=== PATIENT | male | born 1975 | race Caucasian/White ===

== ENCOUNTER 2017-04-02 23:58 | Emergency (ER) | payer OTHER ==
[2017-04-03 00:18] LABS: BASO % 0.9 % (0-2.0); EOS % 1.1 % (0-4.5); HEMATOCRIT 43.1 % (35.4-49); HEMOGLOBIN 14.2 GM/dL (11.7-16.9); LYMPH % 27.5 % (8-40); MCH 28.7 pg (25.7-33.7); MEAN PLT VOLUME 8.1 fl (7.5-11.1); MONO % 9.6 % (3.8-10.2); NEUT % 60.9 % (42.8-82.8); PLATELET COUNT 216 K/MM3 (134-434); RBC 4.96 M/mm3 (4.00-5.60)
[2017-04-03 00:58] LABS: ALK PHOS 78 U/L (45-117); ANION GAP 8 (8-16); BILIRUBIN,TOTAL 0.2 mg/dL (0.2-1.0); BLOOD UREA NITROGEN 18 mg/dL (7-18); CALCIUM 8.8 mg/dL (8.5-10.1); CHLORIDE 106 mmol/L (98-107); CO2 27 mmol/L (21-32); CREATININE 0.9 mg/dL (0.7-1.3); GLUCOSE,RANDOM 78 mg/dL (74-106); POTASSIUM 4.3 mmol/L (3.5-5.1); SGOT/AST 21 U/L (15-37); SGPT/ALT 42 U/L (12-78); SODIUM 141 mmol/L (136-145); TOT PROT 7.2 g/dl (6.4-8.2)
--- NOTE | 2017-04-03 01:02 | PDOC ---
History of Present Illness - General Stated Complaint: LLQ PAIN Time Seen by Provider: 04/03/17 00:08 History Source: Patient Exam Limitations: No Limitations - History of Present Illness Travel History: No Initial Comments: 04/03/17 02:10 41-year-old male with no medical history presents to the emergency department complaining of left lower quadrant abdominal pain. Pain is described as 5/10 dull nonradiating intermittent discomfort without fever, chills, nausea/vomiting , chest pain, shortness of breath, flank pains, urinary symptoms: Frequency/ urgency/hesitancy, hematuria 8 hours. Pain is exacerbated on touch and alleviated minimally at rest. No history of similar symptoms. Timing/Duration: reports: intermittent Quality: reports: moderate Abdominal Pain Onset Location: reports: LLQ Past History - Past Medical History Allergies/Adverse Reactions: Allergies Allergy/AdvReac Type Severity Reaction Status Date / Time No Known Allergies Allergy Verified 04/03/17 01:06 Home Medications: Ambulatory Orders Metronidazole 500 mg PO BID #20 tablet 04/03/17 Sulfamethoxazole/Trimethoprim [Bactrim Ds -] 1 tab PO BID #14 tablet 04/03/17 Review of Systems - Review of Systems Able to Perform ROS?: Yes Comments:: 04/03/17 02:11 CONSTITUTIONAL: Absent: fever, chills, diaphoresis, generalized weakness, malaise, loss of appetite HEENT: Absent: rhinorrhea, nasal congestion, throat pain, throat swelling, difficulty swallowing, mouth swelling, ear pain, eye pain, visual Changes CARDIOVASCULAR: Absent: chest pain, loss of consciousness, palpitations, irregular heart rate, peripheral edema RESPIRATORY: Absent: cough, shortness of breath, dyspnea with exertion, orthopnea, wheezing, stridor, hemoptysis GASTROINTESTINAL: +LLQ pain Absent: abdominal distension, nausea, vomiting, diarrhea, constipation, melena, hematochezia GENITOURINARY: Absent: dysuria, frequency, urgency, hesitancy, hematuria, flank pain, genital pain MUSCULOSKELETAL: Absent: myalgia, arthralgia, joint swelling SKIN: Absent: rash, itching, pallor HEMATOLOGIC/IMMUNOLOGIC: Absent: easy bleeding, easy bruising, lymphadenopathy, frequent infections ENDOCRINE: Absent: unexplained weight gain, unexplained weight loss, heat intolerance, cold intolerance Is the patient limited [place]ian proficient: No *Physical Exam - Physical Exam Comments: 04/03/17 02:11 GENERAL: Well developed, well nourished. Awake and alert. No acute distress. HEENT: Normocephalic, atraumatic. PERRLA, EOMI. No conjunctival pallor. Sclera are non- icteric. Moist mucous membranes. Oropharynx is clear. NECK: Supple. Full ROM. No JVD. Carotid pulses 2+ and symmetric, without bruits. No thyromegaly. No lymphadenopathy. CARDIOVASCULAR: Regular rate and rhythm. No murmurs, rubs, or gallops. Distal pulses are 2+ and symmetric. PULMONARY: No evidence of respiratory distress. Lungs clear to auscultation bilaterally. No wheezing, rales or rhonchi. ABDOMINAL: +LLQ abd pain Soft.Non-distended. No rebound or guarding. No organomegaly. Normoactive bowel sounds. MUSCULOSKELETAL Normal range of motion at all joints. No bony deformities or tenderness. No CVA tenderness. EXTREMITIES: No cyanosis. No clubbing. No edema. No calf tenderness. SKIN: Warm and dry. Normal capillary refill. No rashes. No jaundice. ED Treatment Course - LABORATORY CBC & Chemistry Diagram: 04/02/17 23:58 04/02/17 23:58 - ADDITIONAL ORDERS Additional order review: Laboratory Results 04/02/17 23:58 Sodium 141 Potassium 4.3 Chloride 106 Carbon Dioxide 27 Anion Gap 8 BUN 18 Creatinine 0.9 Creat Clearance w eGFR > 60 Random Glucose 78 Calcium 8.8 Total Bilirubin 0.2 AST 21 ALT 42 Alkaline Phosphatase 78 Total Protein 7.2 Albumin 4.0 04/02/17 23:58 RBC 4.96 MCV 87.0 MCHC 33.0 RDW 14.0 MPV 8.1 Neutrophils % 60.9 Lymphocytes % 27.5 Monocytes % 9.6 Eosinophils % 1.1 Basophils % 0.9 - RADIOLOGY Radiograph Interpretation: 04/03/17 02:12 CT abd/pelvis with IV contrast: Preliminary impression shows mild acute uncomplicated diverticulitis of the distal descending colon Medical Decision Making - Medical Decision Making 04/03/17 04:03 41-year-old male comes in complaining of right lower quadrant abdominal pain. On exam, consistent with diverticulitis. Patient had a CAT scan of abdomen and pelvis without contrast and shows mild diverticulitis to the descending colon. Patient will be treated with antibiotics and discharged home to follow with GI. *DC/Admit/Observation/Transfer Diagnosis at time of Disposition: Diverticulitis - Discharge Dispostion Condition at time of disposition: Stable Admit: No - Prescriptions Prescriptions: Metronidazole 500 mg PO BID #20 tablet Sulfamethoxazole/Trimethoprim [Bactrim Ds -] 1 tab PO BID #14 tablet - Referrals Referrals: Robinson Schmitt [Primary Care Provider] - Sam Jackson MD [Staff Physician] - - Patient Instructions Printed Discharge Instructions: DI for Diverticulitis Additional Instructions: Your food should contain high in fiber such as fruits and vegetables, legumes/ beans whole grains. You should avoid foods such has popcorn, poppy sees, sesame seeds. Increase fluids You must follow with the axle turner this week If you do not have a GI physician, one has been provided for you/Dr. Jackson Return back to the emergency department for severe/persistent or worsening symptoms. - Post Discharge Activity
[2017-04-03 01:06] VITALS: BP 132/90; PULSE 90; TEMP 98.1; BMI 39.0
[2017-04-03 01:33] LABS: URINE APPEARANCE CLEAR; URINE BILIRUBIN NEGATIVE (NEGATIVE); URINE BLOOD 2+ (NEGATIVE); URINE COLOR YELLOW; URINE GLUCOSE (UA) NEGATIVE (NEGATIVE); URINE KETONE NEGATIVE (NEGATIVE); URINE LEUK ESTERASE NEGATIVE (NEGATIVE); URINE NITRITE NEGATIVE (NEGATIVE); URINE PROTEIN NEGATIVE (NEGATIVE); URINE UROBILINOGEN NEGATIVE mg/dL (0.2-1.0)
[2017-04-03 01:37] LABS: URINE MUCUS FEW
[2017-04-03] MEDS ORDERED: METRONIDAZOLE 500 MG PREMIXED 500 MG/100 ML MG IVPB ONE ×2 (04:05→04:38)
[2017-04-03] MEDS ORDERED: LEVOFLOXACIN 500 MG IVPB 500 MG/100 ML BAG IVPB ONE ×2 (04:06→04:17)
== END 2017-04-03 05:12 | disposition home or self-care (01) ==
LOC: JER 23:58
DX: K57.92 Diverticulitis of intestine, part unspecified, without perforation or abscess without bleeding (principal)
CPT/HCPCS: 36415; 74176-TC; 80053; 81003; 81015; 85025; 99281-25